=== PATIENT | male | born 1995 | race African-American/Black ===

== ENCOUNTER 2021-12-14 10:54 | Day surgery (SDC) | payer OTHER ==
[~2021-12-14] VITALS: Ht 185.4 cm; Wt 84.8 kg
[~2021-12-14 10:54] MED LIST: NS 1,000 ML IV ONE
[2021-12-14] MEDS ORDERED: propofoL 200 MG/20 ML VIAL As Ordered ONE (11:12)
[2021-12-14] MEDS ORDERED: LIDOCAINE 2% 100MG/5ML SDV (FOR ANES.) As Ordered ONE (11:12)
[2021-12-14] MEDS ORDERED: fentaNYL 100 MCG/2 ML INJECTION (J3010) As Ordered ONE (12:18)
[2021-12-14 13:12] VITALS: BP 110/56
== END 2021-12-14 13:14 | disposition home or self-care (01) ==
LOC: M OPP 10:54
PROVIDERS: ATTEND Internal Medicine Gastroenterology
DX: K22.89 Other specified disease of esophagus (principal); K20.0 Eosinophilic esophagitis; K29.70 Gastritis, unspecified, without bleeding; R13.10 Dysphagia, unspecified
CPT/HCPCS: 43239; 88305; J3010

== ENCOUNTER 2022-03-22 06:55 | Emergency (ER) | payer OTHER ==
[~2022-03-22] VITALS: Ht 185.4 cm; Wt 83.2 kg
[2022-03-22 07:03] VITALS: BP 128/68
[2022-03-22] MEDS ORDERED: MOTR200T44 PO (07:06)
[2022-03-22] MEDS ORDERED: ACETAMINOPHEN TAB 650MG DOSE (2X325MG) PO ONE (08:00)
[2022-03-22] MEDS ORDERED: IBUPROFEN 800 MG TAB PO ONE (08:00)
[2022-03-22] MEDS ORDERED: IBUP80TA PO (08:03)
[2022-03-22] MEDS ORDERED: CYCL-707 PO (08:03)
== END 2022-03-22 08:29 | disposition home or self-care (01) ==
LOC: M ED 06:55
DX: S39.012A Strain of muscle, fascia and tendon of lower back, initial encounter (principal); M54.31 Sciatica, right side; X50.0XXA Overexertion from strenuous movement or load, initial encounter; Y92.9 Unspecified place or not applicable; Y93.67 Activity, basketball; Y99.9 Unspecified external cause status; M51.36 Other intervertebral disc degeneration, lumbar region

== ENCOUNTER 2022-04-18 12:33 | Day surgery (SDC) | payer OTHER ==
[~2022-04-18] VITALS: Ht 185.4 cm; Wt 82.1 kg
[~2022-04-18 12:33] MED LIST changes: +CYCL-707 PO; +IBUP80TA PO; +LIDOCAINE 2% 100MG/5ML SDV (FOR ANES.) As Ordered ONE; +MOTR200T44 PO; +fentaNYL 100 MCG/2 ML INJECTION As Ordered ONE; +propofoL 200 MG/20 ML VIAL As Ordered ONE
[2022-04-18] MEDS ORDERED: ONDANSETRON 4MG/2ML VIAL As Ordered ONE (14:27)
[2022-04-18] MEDS ORDERED: propofoL 200 MG/20 ML VIAL As Ordered ONE ×2 (14:37→14:41)
[2022-04-18 15:15] VITALS: BP 124/67
== END 2022-04-18 15:20 | disposition home or self-care (01) ==
LOC: M OPP 12:33
PROVIDERS: ATTEND Internal Medicine Gastroenterology
DX: K22.89 Other specified disease of esophagus (principal); K29.70 Gastritis, unspecified, without bleeding; B96.81 Helicobacter pylori [H. pylori] as the cause of diseases classified elsewhere; K20.0 Eosinophilic esophagitis; Z79.1 Long term (current) use of non-steroidal anti-inflammatories (NSAID); Z79.899 Other long term (current) drug therapy
CPT/HCPCS: 43239; 88305; J2405; J3010